=== PATIENT | female | born 1975 | race Hispanic/Latino ===

== ENCOUNTER 2018-01-23 14:40 | Emergency (ER) | payer OTHER ==
--- NOTE | 2018-01-23 14:58 | ED PDOC ---
Arrival/HPI - General Time Seen by Provider: 01/23/18 14:49 Historian: Patient - History of Present Illness Narrative History of Present Illness (Text): 01/23/18 14:57 42 year old female with a past medical history that includes asthma, pneumonia, presents to the emergency room complaining of intermittent LUQ and Epigastric pain x 10 days. Patient stated pain has been progressively worsen. Patient also noted feeling nauseous early today. Patient took Nexium prior coming to ED. Patient denies sob, cp, recent travel, sick contact, urinary symptoms, vomiting, or diarrhea. Time/Duration: Other (see hpi) Context: Home Past Medical History - Provider Review Nursing Documentation Reviewed: Yes - Cardiac Hx Cardiac Disorders: No Hx Pacemaker: No - Pulmonary Hx Respiratory Disorders: No Hx Asthma: Yes Hx Bronchitis: Yes Hx Pneumonia: Yes - Neurological Hx Neurological Disorder: No Hx Paralysis: No - HEENT Hx HEENT Disorder: No - Renal Hx Renal Disorder: No - Endocrine/Metabolic Hx Endocrine Disorders: No - Hematological/Oncological Hx Blood Disorders: No Hx Blood Transfusions: No Hx Blood Transfusion Reaction: No - Integumentary Hx Dermatological Disorder: No - Musculoskeletal/Rheumatological Hx Musculoskeletal Disorders: No Hx Falls: No - Gastrointestinal Hx Gastrointestinal Disorders: Yes Hx Gastritis: Yes - Genitourinary/Gynecological Hx Genitourinary Disorders: No - Psychiatric Hx Psychophysiologic Disorder: Yes Hx Anxiety: Yes Hx Depression: No Hx Emotional Abuse: No Hx Physical Abuse: No Hx Substance Use: No - Surgical History Hx Section: Yes Hx Dilation and Curettage: Yes Hx Tonsillectomy: Yes - Anesthesia Hx Anesthesia: Yes Hx Anesthesia Reactions: No Hx Malignant Hyperthermia: No - Suicidal Assessment Feels Threatened In Home Enviroment: No Family/Social History - Physician Review Nursing Documentation Reviewed: Yes Family/Social History: Other (noncontributory) Smoking Status: Never Smoked Hx Alcohol Use: Yes (SOCIALLY ON WEEKENDS) Hx Substance Use: No Hx Substance Use Treatment: No Allergies/Home Meds Allergies/Adverse Reactions: Allergies No Known Allergies Allergy (Verified 11/12/15 20:23) Home Medications: Home Meds Medication Instructions Recorded Confirmed No Known Home Med 01/23/18 01/23/18 Review of Systems - Review of Systems Constitutional: Normal. absent: Fatigue, Weight Change, Fevers Eyes: Normal ENT: Normal Respiratory: Normal. absent: SOB Cardiovascular: Normal. absent: Chest Pain Gastrointestinal: Abdominal Pain, Nausea. absent: Constipation, Diarrhea, Vomiting Genitourinary Female: Normal. absent: Dysuria, Frequency, Hematuria Musculoskeletal: Normal Skin: Normal. absent: Rash Neurological: Normal. absent: Headache, Dizziness, Focal Weakness, Gait Changes , Speech Changes Endocrine: Normal Hemo/Lymphatic: Normal Psychiatric: Normal Physical Exam Vital Signs Temp Pulse Resp BP Pulse Ox 01/23/18 16:48 79 18 121/68 99 01/23/18 15:01 98.6 F 82 18 125/70 99 Temperature: Afebrile Blood Pressure: Normal Pulse: Regular Respiratory Rate: Normal Appearance: Positive for: Well-Appearing, Non-Toxic, Comfortable Pain Distress: None Mental Status: Positive for: Alert and Oriented X 3 - Systems Exam Head: Present: Atraumatic, Normocephalic Pupils: Present: PERRL Extroacular Muscles: Present: EOMI Conjunctiva: Present: Normal Mouth: Present: Moist Mucous Membranes Neck: Present: Normal Range of Motion Respiratory/Chest: Present: Clear to Auscultation, Good Air Exchange. No: Respiratory Distress, Accessory Muscle Use Cardiovascular: Present: Regular Rate and Rhythm, Normal S1, S2. No: Murmurs Abdomen: No: Tenderness, Distention, Peritoneal Signs, Rebound, Guarding Back: Present: Normal Inspection Upper Extremity: Present: Normal Inspection, Normal ROM. No: Cyanosis, Edema Lower Extremity: Present: Normal Inspection, Normal ROM. No: Edema Neurological: Present: GCS=15, CN II-XII Intact, Speech Normal, Motor Func Grossly Intact, Normal Sensory Function, Normal Cerebellar Funct, Gait Normal Skin: Present: Warm, Dry, Normal Color. No: Rashes Psychiatric: Present: Alert, Oriented x 3, Normal Insight, Normal Concentration Medical Decision Making ED Course and Treatment: 01/23/18 17:23 Re-evaluation. Patient feels better. Discussed results and plan with patient who expresses understanding. All questions answered and there is agreement with the plan to discharge home with instructions. Patient stable for discharge. Return if symptoms persist or worsen Re-evaluation Time: 17:23 Reassessment Condition: Re-examined, Improved - Lab Interpretations Lab Results: 01/23/18 15:20 01/23/18 15:20 Lab Results 01/23/18 15:20: Sodium 139, Potassium 3.9, Chloride 106, Carbon Dioxide 22, Anion Gap 14, BUN 14, Creatinine 0.6 L, Est GFR ( Amer) > 60, Est GFR ( Non-Af Amer) > 60, Random Glucose 89, Calcium 8.6, Total Bilirubin 0.2, AST 24, ALT 36, Alkaline Phosphatase 54, Total Protein 6.7, Albumin 3.9, Globulin 2.8, Albumin/Globulin Ratio 1.4, Lipase 142 01/23/18 15:20: WBC 7.1 D, RBC 4.68, Hgb 13.0, Hct 38.6, MCV 82.5, MCH 27.8, MCHC 33.7, RDW 14.7 H, Plt Count 180, MPV 11.8 H, Gran % 55.5, Lymph % (Auto) 27.7, [place] % (Auto) 9.9 H, Eos % (Auto) 6.1 H, Baso % (Auto) 0.8, Gran # 3.92, Lymph # (Auto) 2.0, [place] # (Auto) 0.7 H, Eos # (Auto) 0.4, Baso # (Auto) 0.06 01/23/18 15:00: Urine HCG, Qual Negative I have reviewed the lab results: Yes Interpretation: No clinic. lab abnormalty - RAD Interpretation Narrative RAD Interpretations (Text): 01/23/18 17:23 PROCEDURE: CT abdomen and pelvis dated 01/23/2018 HISTORY: Left-sided flank pain. COMPARISON: Comparison made with prior CT scan abdomen pelvis dated 11/13/2015 and pelvic ultrasound 12/16/2015. TECHNIQUE: Technique. . Contrast dose: NA Radiation dose: Total exam DLP = 616.44 mGy-cm. This CT exam was performed using one or more of the following dose reduction techniques: Automated exposure control, adjustment of the mA and/or kV according to patient size, and/or use of iterative reconstruction technique. . FINDINGS: LOWER THORAX: Lung bases are clear. No infiltrate effusion or basilar pneumothorax. There is a small hiatal hernia with wall thickening of the distal esophagus likely due to protrusion of gastric mucosa. Possibility of esophagitis not excluded. Heart size normal. No significant pericardial effusion. LIVER: The liver is of borderline/mildly enlarged measuring nearly 18.5 cm in CC dimension. No obvious hepatic mass or collection seen on this noncontrast study. GALLBLADDER AND BILE DUCTS: The gallbladder appears incompletely distended. No evidence of intraluminal bladder gallbladder calculi. PANCREAS: Pancreas is unremarkable without masses collections or calcifications. No significant pancreatic ductal dilatation. SPLEEN: Spleen exhibits normal size and attenuation pattern without masses collections or calcifications. ADRENALS: There are no adrenal lesions. KIDNEYS AND URETERS: Kidneys exhibit symmetric size. No evidence of nephrolithiasis. Prominent of bilateral extrarenal pelves an of minimal prominence of the proximal ureters which appear to taper relatively rapidly. The prominence could be due to a distended urinary bladder however the possibility of the below mentioned enlarged fibroid uterus side could conceivably contribute. Clinical correlation recommended. . There appears to be a small approximately 8 mm anterior cortical cyst mid to lower pole left kidney. VASCULATURE: Unremarkable. No aortic aneurysm. BOWEL: Evaluation of the bowel is limited due to the lack of oral contrast material. The stomach is incompletely distended which in part accounts for thick-walled appearance. Visualized loops of small bowel exhibit normal contour and caliber. No evidence acute mechanical small bowel obstruction. Stool and air seen throughout the large bowel. There appears to be a few scattered colonic diverticula however no radiographic evidence of acute diverticulitis. . No definitive mural wall thickening APPENDIX: Normal-appearing appendix of best seen on axial image number [id number]. No periappendiceal inflammatory changes. . PERITONEUM: Unremarkable. No free fluid. No free air. Small fat containing umbilical hernia. LYMPH NODES: Unremarkable. No enlarged lymph nodes. BLADDER: Urinary bladder is physiologically distended. No evidence of intraluminal urinary bladder calculi. REPRODUCTIVE: Uterus is of the bulky with lobular contour and heterogeneous attenuation consistent with uterine fibroids. BONES: No acute fracture. OTHER FINDINGS: None. IMPRESSION: Fibroid uterus. Mildly prominent bilateral extrarenal pelves and proximal ureters or possibly due to distended urinary bladder however the enlarged fibroid uterus could conceivably contribute. Clinical correlation recommended. No evidence of nephrolithiasis or hydronephrosis Small cyst anterior cortex left kidney as above . Borderline/mild hepatomegaly Radiology Orders: 01/23/18 15:08 ABD & PELVIS W/O PO OR IV CONT [CT] Stat - Medication Orders Current Medication Orders: Discontinued Medications Al Hydrox/Mg Hydrox/Simethicone (Maalox Plus 30 Ml) 30 ml PO STAT STA Stop: 01/23/18 15:10 Last Admin: 01/23/18 15:28 Dose: 30 ml Belladonna/Phenobarbital ( Elixir) 10 ml PO STAT STA Stop: 01/23/18 15:10 Last Admin: 01/23/18 15:28 Dose: 10 ml Famotidine (Pepcid) 20 mg IVP STAT STA Stop: 01/23/18 15:10 Last Admin: 01/23/18 15:29 Dose: 20 mg IVP Administration Document 01/23/18 15:29 GMD (Rec: 01/23/18 15:29 GMD [id number]) Charges for Administration # of IVP Administrations 1 Sodium Chloride (Sodium Chloride 0.9%) 1,000 mls @ 1,000 mls/hr IV .Q1H STA Stop: 01/23/18 16:08 Last Admin: 01/23/18 15:29 Dose: 1,000 mls/hr eMAR Start Stop Document 01/23/18 15:29 GMD (Rec: 01/23/18 15:29 GMD [id number]) Intravenous Solution Start Date 01/23/18 Start Time 15:29 End Date 01/23/18 End time 16:29 Total Infusion Time 60 Lidocaine HCl (Lidocaine 2% Viscous) 5 ml MM STAT STA Stop: 01/23/18 15:10 Last Admin: 01/23/18 15:28 Dose: 5 ml Ondansetron HCl (Zofran Inj) 4 mg IVP STAT STA Stop: 01/23/18 15:10 Last Admin: 01/23/18 15:28 Dose: 4 mg IVP Administration Document 01/23/18 15:28 GMD (Rec: 01/23/18 15:29 GMD [id number]) Charges for Administration # of IVP Administrations 1 Disposition/Present on Arrival - Present on Arrival Any Indicators Present on Arrival: No History of DVT/PE: No History of Uncontrolled Diabetes: No Urinary Catheter: No History Surgical Site Infection Following: None - Disposition Have Diagnosis and Disposition been Completed?: Yes Diagnosis: Nonspecific abdominal pain, Gastritis, Simple cyst of kidney, Fibroid uterus Disposition: HOME/ ROUTINE Disposition Time: 17:27 Patient Plan: Discharge Patient Problems: Current Active Problems Problem Status Onset Gastritis Acute Nonspecific abdominal pain Acute Simple cyst of kidney Acute Condition: GOOD Discharge Instructions (ExitCare): Flank Pain, Gastritis (DC) Additional Instructions: Call private doctor for follow up visit in 1-2 days. Take medication as instructed . Call private [employer] doctor and Urologist for further evaluation. Review labs, and CT scan result with your doctor. Return to emergency if symptoms worsen. Referrals: Neal Krishnan MD [Primary Care Provider] - Follow up with primary Lucía Maldonado MD [Staff Provider] - Follow up with primary [facility] [Outside] - Follow up with [facility] [Outside] - Follow up with primary Forms: WORK NOTE
[2018-01-23 15:01] VITALS: BMI 26.5
[2018-01-23 15:02] VITALS: RESP 18; TEMP 98.6; O2SAT 99
[2018-01-23] MEDS ORDERED: Atrop/Hyosc/Scopal/PB Elixir (120 ml) PO STA (15:09)
[2018-01-23] MEDS ORDERED: Sodium Chloride 0.9% 1,000 ML IV STA (15:09)
[2018-01-23] MEDS ORDERED: Alum-Mag Hydrox-Simethicone Susp (30 mL) PO STA (15:09)
[2018-01-23 15:36] LABS: BASO # 0.06 K/mm3 (0.0-2.0); BASO % 0.8 % (0.0-3.0); EOS # 0.4 (0.0-0.7); EOS % 6.1 % (1.5-5.0); GRAN # 3.92 (1.4-6.5); GRAN % 55.5 % (50.0-68.0); LYMPH % 27.7 % (22.0-35.0); MEAN CELL VOLUME 82.5 fl (80.0-105.0); MEAN CORPUSCULAR HEMOGLOBIN 27.8 pg (25.0-35.0); MEAN CORPUSCULAR HGB CONC 33.7 g/dl (31.0-37.0); MEAN PLATELET VOLUME 11.8 fl (7.0-11.0); MONO # 0.7 (0.1-0.6); MONO % 9.9 % (1.0-6.0); RBC 4.68 10^6/uL (3.5-6.1); RED CELL DISTRIBUTION WIDTH 14.7 % (11.5-14.5); WHITE BLOOD COUNT 7.1 10^3/ul (4.5-11.0)
[2018-01-23 15:47] LABS: ALB/GLOB RATIO 1.4 (1.1-1.8); ALBUMIN 3.9 g/dL (3.0-4.8); ALT/SGPT 36 U/L (7-56); AST/SGOT 24 U/L (14-36); BLOOD UREA NITROGEN 14 mg/dL (7-21); CALCIUM 8.6 mg/dL (8.4-10.5); GFR AFRICAN-AMERICAN > 60; GFR NON-AFRICAN AMERICAN > 60; LIPASE 142 U/L (23-300)
--- NOTE | 2018-01-23 16:42 | CT ---
PROCEDURE: CT abdomen and pelvis dated 01/23/2018 HISTORY: Left-sided flank pain. COMPARISON: Comparison made with prior CT scan abdomen pelvis dated 11/13/2015 and pelvic ultrasound 12/16/2015. TECHNIQUE: Technique. . Contrast dose: NA Radiation dose: Total exam DLP = 616.44 mGy-cm. This CT exam was performed using one or more of the following dose reduction techniques: Automated exposure control, adjustment of the mA and/or kV according to patient size, and/or use of iterative reconstruction technique. . FINDINGS: LOWER THORAX: Lung bases are clear. No infiltrate effusion or basilar pneumothorax. There is a small hiatal hernia with wall thickening of the distal esophagus likely due to protrusion of gastric mucosa. Possibility of esophagitis not excluded. Heart size normal. No significant pericardial effusion. LIVER: The liver is of borderline/mildly enlarged measuring nearly 18.5 cm in CC dimension. No obvious hepatic mass or collection seen on this noncontrast study. GALLBLADDER AND BILE DUCTS: The gallbladder appears incompletely distended. No evidence of intraluminal bladder gallbladder calculi. PANCREAS: Pancreas is unremarkable without masses collections or calcifications. No significant pancreatic ductal dilatation. SPLEEN: Spleen exhibits normal size and attenuation pattern without masses collections or calcifications. ADRENALS: There are no adrenal lesions. KIDNEYS AND URETERS: Kidneys exhibit symmetric size. No evidence of nephrolithiasis. Prominent of bilateral extrarenal pelves an of minimal prominence of the proximal ureters which appear to taper relatively rapidly. The prominence could be due to a distended urinary bladder however the possibility of the below mentioned enlarged fibroid uterus side could conceivably contribute. Clinical correlation recommended. . There appears to be a small approximately 8 mm anterior cortical cyst mid to lower pole left kidney. VASCULATURE: Unremarkable. No aortic aneurysm. BOWEL: Evaluation of the bowel is limited due to the lack of oral contrast material. The stomach is incompletely distended which in part accounts for thick-walled appearance. Visualized loops of small bowel exhibit normal contour and caliber. No evidence acute mechanical small bowel obstruction. Stool and air seen throughout the large bowel. There appears to be a few scattered colonic diverticula however no radiographic evidence of acute diverticulitis. . No definitive mural wall thickening APPENDIX: Normal-appearing appendix of best seen on axial image number [id number]. No periappendiceal inflammatory changes. . PERITONEUM: Unremarkable. No free fluid. No free air. Small fat containing umbilical hernia. LYMPH NODES: Unremarkable. No enlarged lymph nodes. BLADDER: Urinary bladder is physiologically distended. No evidence of intraluminal urinary bladder calculi. REPRODUCTIVE: Uterus is of the bulky with lobular contour and heterogeneous attenuation consistent with uterine fibroids. BONES: No acute fracture. OTHER FINDINGS: None. IMPRESSION: Fibroid uterus. Mildly prominent bilateral extrarenal pelves and proximal ureters or possibly due to distended urinary bladder however the enlarged fibroid uterus could conceivably contribute. Clinical correlation recommended. No evidence of nephrolithiasis or hydronephrosis Small cyst anterior cortex left kidney as above . Borderline/mild hepatomegaly
[2018-01-23 17:37] VITALS: BP 122/76; PULSE 78
== END 2018-01-23 17:46 | disposition home or self-care (01) ==
LOC: ED 14:40
DX: N28.1 Cyst of kidney, acquired (principal); D25.9 Leiomyoma of uterus, unspecified; K29.70 Gastritis, unspecified, without bleeding; R10.12 Left upper quadrant pain
CPT/HCPCS: 74176; 80053; 83690; 84703; 85025; 96361; 96374; 96375; 99285; J2405; J7040